=== PATIENT | male | born 1950 | race Caucasian/White ===

== ENCOUNTER 2018-11-04 07:31 | Day surgery (SDC) | payer MEDICARE, MEDICAID ==
[2018-11-04] MEDS ORDERED: fentaNYL 100 MCG/2 ML SDV ONE (07:51)
[2018-11-04] MEDS ORDERED: Propofol 200 MG/20 ML SDV ONE (07:51)
[2018-11-04] MEDS ORDERED: Midazolam 1 MG/ML 2 ML SDV ONE (07:51)
[2018-11-04] MEDS ORDERED: Lactated Ringers 1,000 ML IV SCH (08:45)
[2018-11-04 10:59] VITALS: BP 108/73; PULSE 63
--- NOTE | 2018-11-07 07:56 | OR ---
DATE OF PROCEDURE: 11/04/2018 PREOPERATIVE DIAGNOSIS: Blood in stool. POSTOPERATIVE DIAGNOSES: 1. Blood in stool, etiology unknown. 2. Unremarkable colonoscopy. PROCEDURE: Colonoscopy to the cecum. ANESTHESIA: IV anesthesia with monitored anesthesia care. SURGEON: Ventura Serrano MD INDICATION: This 68-year-old white male is referred for a colonoscopy because of blood in his stool. He says his last colonoscopic exam was done about 6 years ago. I counseled him for the procedure including risks and alternatives, and he gave his informed consent to proceed. DESCRIPTION OF PROCEDURE: The patient was placed in the left lateral decubitus position. IV anesthesia was administered by the Anesthesia Service. Time-out was held. A rectal exam was performed, which was unremarkable. The flexible video Olympus colonoscope was introduced through his anus, up his rectum, and out his colon all the way to the cecum. Once the cecum was reached, the scope was slowly withdrawn examining the mucosa throughout. No mucosal abnormalities were noted. The scope was retroflexed in the rectum with the distal rectum appearing unremarkable. The scope was straightened and removed. He tolerated the procedure well. Ventura Serrano MD /[id number]
== END 2018-11-04 11:20 | disposition home or self-care (01) ==
LOC: JP.SDS 07:31
PROVIDERS: ATTEND Surgery
DX: K92.1 Melena (principal); E78.00 Pure hypercholesterolemia, unspecified; F17.200 Nicotine dependence, unspecified, uncomplicated; Z88.0 Allergy status to penicillin; Z88.8 Allergy status to other drugs, medicaments and biological substances
CPT/HCPCS: 45378; J2250; J2704; J3010; J7120

== ENCOUNTER 2024-02-20 16:53 | Emergency (ER) | payer OTHER, MEDICARE, MEDICAID ==
[2024-02-20 17:41] LABS: BASOPHILS ABSOLUTE AUTO 0.05 K/uL (0.00-0.10); BASOPHILS PERCENT AUTO 0.6 % (0.1-1.3); EOSINOPHILS ABSOLUTE AUTO 0.17 K/uL (0.00-0.40); EOSINOPHILS PERCENT AUTO 2.2 % (0.0-5.4); HEMATOCRIT 43.6 % (38.4-49.7); IMMATURE GRAN ABSOLUTE AUTO 0.03 K/uL (0.00-0.23); IMMATURE GRAN PERCENT AUTO 0.4 % (0.0-0.7); LYMPHOCYTES ABSOLUTE AUTO 3.28 K/uL (0.8-3.3); LYMPHOCYTES PERCENT AUTO 41.9 % (11.4-47.7); MEAN CORPUSCULAR HEMOGLOBIN 32.1 pg (31.6-35.5); MEAN CORPUSCULAR HGB CONC 34.4 g/dL (31.6-35.5); MEAN CORPUSCULAR VOLUME 93.2 fL (81.4-99.0); MONOCYTES ABSOLUTE AUTO 0.61 K/uL (0.20-0.90); MONOCYTES PERCENT AUTO 7.8 % (3.3-12.6); NEUTROPHILS ABSOLUTE AUTO 3.69 K/uL (1.0-7.6); NEUTROPHILS PERCENT AUTO 47.1 % (40.0-78.1); PLATELET COUNT,PLT 211 K/uL (130-375); RED BLOOD CELL COUNT 4.68 M/uL (4.14-5.76); WHITE BLOOD CELL COUNT,WBC 7.8 K/uL (3.2-11.0)
[2024-02-20 18:06] LABS: ALANINE AMINOTRANSFERASE,ALT 96 U/L (12-78); ALBUMIN 3.5 g/dL (3.4-5.0); ALKALINE PHOSPHATASE 90 U/L (46-116); ANION GAP 9.9 mmol/L (5.0-14.0); ASPARTATE AMNIOTRANSFERASE,AST 56 U/L (15-37); BILIRUBIN TOTAL 0.4 mg/dL (0.2-1.0); BLOOD UREA NITROGEN,BUN 16 mg/dL (7-18); CALCIUM 8.7 mg/dL (8.5-10.1); CARBON DIOXIDE,CO2 26 mmol/L (21-32); CHLORIDE,CL 105 mmol/L (100-108); CREATININE 1.2 mg/dL (0.8-1.3); EST CRCL DRUG DOSING (CG) 53.83 mL/min; ESTIMATED GFR 64 mL/min (>60); GLUCOSE RANDOM 137 mg/dL (74-106); POTASSIUM,K 3.7 mmol/L (3.6-5.2); PROTEIN TOTAL,TP 7.1 g/dL (6.4-8.2); SODIUM,NA 141 mmol/L (140-148)
[2024-02-20 19:06] VITALS: BP 106/59; PULSE 68
== END 2024-02-20 19:52 | disposition home or self-care (01) ==
LOC: JP.ED 16:53
DX: S00.31XA Abrasion of nose, initial encounter (principal); F10.120 Alcohol abuse with intoxication, uncomplicated; Z90.49 Acquired absence of other specified parts of digestive tract; Z88.0 Allergy status to penicillin; Z88.1 Allergy status to other antibiotic agents; V49.40XA Driver injured in collision with unspecified motor vehicles in traffic accident, initial encounter
CPT/HCPCS: 36415; 70450; 71046; 71046-26; 72125; 76377; 80053; 80307; 83690; 85025; 99285